=== PATIENT | male | born 1940 | race Caucasian/White ===

== ENCOUNTER 2019-05-11 06:39 | Day surgery (SDC) | payer BC ==
[2019-05-11] MEDS ORDERED: SOD CHLORIDE 0.45% 1,000 ML IV (07:30)
[2019-05-11 07:39] LABS: ADD MAN DIFF? NO
[2019-05-11 07:43] LABS: BASOPHIL # 0.1 10^3/ul (0.0-0.1); EOSINOPHILS # 0.9 10^3/ul (0.0-0.5); EOSINOPHILS % 9.5 % (0.0-7.0); HEMATOCRIT 42.1 % (42.0-52.0); HEMOGLOBIN 13.5 g/dl (14.0-18.0); LYMPHOCYTES # 2.9 10^3/ul (0.8-2.9); LYMPHOCYTES % 32.3 % (15.0-51.0); MEAN CORPUSCULAR HEMOGLOBIN 30.6 pg (29.0-33.0); MEAN CORPUSCULAR HGB CONC 32.1 g/dl (32.0-37.0); MEAN CORPUSCULAR VOLUME 95.5 fl (82.0-101.0); MEAN PLATELET VOLUME 11.2 fl (7.4-10.4); MONOCYTE # 0.8 10^3/ul (0.3-0.9); NEUTROPHIL # 4.3 10^3/ul (1.6-7.5); PLATELET COUNT 221 10^3/UL (140-415); RED BLOOD COUNT 4.41 10^6/ul (4.70-6.10); RED CELL DISTRIBUTION WIDTH 13.1 % (11.5-14.5)
[2019-05-11 08:06] LABS: ALANINE AMINOTRANSFERASE 13 IU/L (13-69); ALBUMIN 4.3 g/dl (3.3-4.9); ALBUMIN/GLOBULIN RATIO 1.26; ALKALINE PHOSPHATASE 43 IU/L (42-121); ANION GAP 11 (5-13); ASPARTATE AMINO TRANSFERASE 26 IU/L (15-46); BLOOD UREA NITROGEN 21 mg/dl (7-20); CALCIUM 9.2 mg/dl (8.4-10.2); CARBON DIOXIDE 29 mmol/L (21-31); CHLORIDE 106 mmol/L (97-110); CHOL/HDL RATIO 5.5 RATIO; CHOLESTEROL 145 mg/dl (100-200); CREATININE 0.85 mg/dl (0.61-1.24); GLUCOSE 103 mg/dl (70-220); HDL CHOLESTEROL 26 mg/dl (31-75); LDL CHOLESTEROL,CALCULATED 90 mg/dl; POTASSIUM 4.4 mmol/L (3.5-5.1); SODIUM 146 mmol/L (135-144); TOTAL PROTEIN 7.7 g/dl (6.1-8.1); TRIGLYCERIDES 147 mg/dl (0-149)
[2019-05-11 08:09] LABS: INR 0.95; PARTIAL THROMBOPLASTIN TIME 26.1 Sec (23.0-35.0); PROTIME 12.8 Sec (11.9-14.9)
[2019-05-11] MEDS: DIAZEPAM 5 MG TAB PO (08:28)
[2019-05-11] MEDS: FAMOTIDINE 20 MG TAB PO (08:28)
[2019-05-11] MEDS: DIPHENHYDRAMINE 50 MG CAP PO (08:28)
[2019-05-11] MEDS ORDERED: LIDOCAINE 1% (MDV) 20 ML INJ (08:48)
[2019-05-11] MEDS ORDERED: NITROGLYCERIN (IC) 100 MCG/ML INJ (08:48)
[2019-05-11] MEDS ORDERED: HEPARIN 1000 UNITS/ML 10 ML INJ (08:48)
[2019-05-11] MEDS ORDERED: IODIXANOL LOCM 100 ML BTL (08:48)
[2019-05-11] MEDS ORDERED: FENTAnyl 50 MCG/ML VIAL (08:48)
[2019-05-11] MEDS ORDERED: MIDAZOLAM 1 MG/ML 2 ML INJ (08:48)
[2019-05-11] MEDS ORDERED: VERAPAMIL 5 MG INJ (08:48)
[2019-05-11] MEDS ORDERED: SOD CHLORIDE 0.9% 500 ML (10:32)
[2019-05-11] MEDS ORDERED: morphine 2 MG INJ IV (11:00)
[2019-05-11] MEDS ORDERED: ONDANSETRON 4 MG INJ IV (11:00)
[2019-05-11] MEDS ORDERED: ACETAMINOPHEN 325 MG TAB PO (11:00)
[2019-05-11] MEDS ORDERED: AL HYDROX/MG HYDROX/SIMETH 30 ML CUP PO (11:00)
[2019-05-11] MEDS: SOD CHLORIDE 0.9% 1,000 ML IV (11:24)
== END 2019-05-11 14:00 | disposition home or self-care (01) ==
LOC: SDS 06:39
DX: I25.10 Atherosclerotic heart disease of native coronary artery without angina pectoris (principal); I10 Essential (primary) hypertension
CPT/HCPCS: 71045; 80053; 80061; 85025; 85610; 85730; 93005; 93458